=== PATIENT | male | born 1995 | race African-American/Black ===

== ENCOUNTER 2017-01-22 18:34 | Emergency (ER) | payer SELFPAY ==
[~2017-01-22] VITALS: Ht 182.9 cm; Wt 110.0 kg
[~2017-01-22 18:34] MED LIST: BACT800T5 PO; CEPH500C3 PO; IBUP800 PO; Z.0.NO CURRENT MEDS
[2017-01-22 18:36] VITALS: BP 141/79; PULSE 80; RESP 16; TEMP 97.4; O2SAT 98
== END 2017-01-22 20:39 | disposition left against medical advice (07) ==
LOC: NED 18:34
DX: Z04.1 Encounter for examination and observation following transport accident (principal); M54.5 Low back pain; M79.605 Pain in left leg
CPT/HCPCS: 99281

== ENCOUNTER 2017-02-28 18:33 | Emergency (ER) | payer SELFPAY ==
[~2017-02-28] VITALS: Ht 185.4 cm; Wt 110.0 kg
[2017-02-28 18:45] VITALS: BP 168/90; PULSE 120; RESP 24; TEMP 98.3; O2SAT 99
[2017-02-28] MEDS ORDERED: MORPHINE SULFATE 8 MG/ML INJ IV PUSH ONE (19:30)
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
[2017-02-28] MEDS ORDERED: IBUP-232 PO (21:40)
[2017-02-28 21:48] VITALS: BP 144/77
== END 2017-02-28 21:50 | disposition home or self-care (01) ==
LOC: NEPC 18:33
DX: M25.511 Pain in right shoulder (principal); M25.571 Pain in right ankle and joints of right foot; R51 Headache; Z72.0 Tobacco use; V86.99XA Unspecified occupant of other special all-terrain or other off-road motor vehicle injured in nontraffic accident, initial encounter
CPT/HCPCS: 70450; 72125; 73030; 73600; 96374; 99285; J2270

== ENCOUNTER 2017-08-05 00:53 | Emergency (ER) | payer OTHER ==
[~2017-08-05 00:53] MED LIST changes: -BACT800T5 PO; -CEPH500C3 PO; +IBUP-232 PO; -IBUP800 PO; -Z.0.NO CURRENT MEDS
[2017-08-05 01:07] VITALS: BP 160/74; PULSE 110; RESP 16; TEMP 98.2; O2SAT 96
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
[2017-08-05] MEDS ORDERED: TETANUS/DIPHTHERIA TOXOID ADULT 0.5 ML VIAL IM ONE (01:30)
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
[2017-08-05] MEDS ORDERED: ZOFR4TAB3 SL (03:07)
[2017-08-05] MEDS ORDERED: ONDANSETRON ODT 4 MG TAB PO ONE (03:15)
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
== END 2017-08-05 04:48 ==
LOC: NEPD 00:53
DX: S00.83XA Contusion of other part of head, initial encounter (principal); S39.012A Strain of muscle, fascia and tendon of lower back, initial encounter; M79.604 Pain in right leg; M25.551 Pain in right hip; V43.52XA Car driver injured in collision with other type car in traffic accident, initial encounter; Z72.0 Tobacco use; Z23 Encounter for immunization
CPT/HCPCS: 70450; 72100; 72125; 73502; 73564; 73650; 90471; 90714